=== PATIENT | male | born 1960 | race Two or more races ===

== ENCOUNTER 2018-01-02 18:28 | Inpatient (IN) | payer MEDICAID ==
[~2018-01-02] VITALS: Ht 175.3 cm; Wt 81.7 kg
[~2018-01-02 18:28] MED LIST: CALC667C5 PO; CINA30TA2 PO; GLIP-115; HYDR25TA35; NIFE-16; OMEP20CA74 PO; PRO10T PO; SEVE800T8
[2018-01-02] MEDS ORDERED: SODIUM CHLORIDE 0.9% 250 ML IV ONE (19:30)
[2018-01-02] MEDS ORDERED: PANTOPRAZOLE 40 MG/10 ML VIAL IV ONE (19:30)
[2018-01-02] MEDS ORDERED: ONDANSETRON HCL 4 MG/2 ML VIAL IV ONE (19:30)
[2018-01-02 20:29] LABS: Basophils # (auto) 0 uL; Basophils % (auto) 0.5 % (0.0-2.0); Eosinophils # (auto) 0.2 uL; Eosinophils % (auto) 3.4 % (0.0-7.0); Hematocrit 32.6 % (41.0-53.0); Hemoglobin 10.8 g/dL (13.5-17.5); Lymphocytes # (auto) 0.8 uL; Lymphocytes % (auto) 13.6 % (10.0-50.0); Mean Corpuscular Hemoglobin 31.2 pg (28.0-32.0); Mean Corpuscular Hgb Conc. 33.2 g/dL (32.0-36.0); Mean Corpuscular Volume 93.8 fL (80.0-100.0); Monocytes # (auto) 0.4 uL; Monocytes % (auto) 5.9 % (0.0-12.0); Neutrophils # (auto) 4.8 uL; Neutrophils % (auto) 76.6 % (37.0-80.0); Red Blood Cells 3.47 10^6/uL (4.5-5.90); Red Cell Distribution Width 14.2 % (11.8-14.3); White Blood Cell 6.2 10^3/uL (4.4-10.8)
[2018-01-02 20:32] LABS: Platelet Count (auto) 124 10^3/uL (140-450)
[2018-01-02 20:41] LABS: INR 0.93 (0.9-1.15); Partial Thromboplastin Time 25.2 sec (22.64-33.71); Prothrombin Time 10.1 sec (9.37-12.3)
[2018-01-02 20:53] LABS: Albumin 3.6 g/dL (3.4-5.0); BUN/Creatinine Ratio 4.8; Bilirubin, Total 0.5 mg/dL (0.2-1.0); Magnesium 2.8 mg/dL (1.6-2.6); Potassium 3.7 mmol/L (3.5-5.1); Total Protein 8.3 g/dL (6.4-8.2)
[2018-01-03] VITALS (7 sets, daily range): BP systolic 107–154; BP diastolic 43–108
[2018-01-03] MEDS ORDERED: PANTOPRAZOLE 80 MG in SODIUM CHL 0.9% 60 ML IV ONE (01:30)
[2018-01-03] MEDS ORDERED: ONDANSETRON HCL 4 MG/2 ML VIAL IV PRN (02:00)
[2018-01-03] MEDS ORDERED: ACETAMINOPHEN 500 MG TAB PO PRN (02:00)
[2018-01-03] MEDS ORDERED: HYDROcodone-ACET 5/325MG TAB PO PRN (02:00)
[2018-01-03] MEDS ORDERED: IBUPROFEN 600 MG TAB PO PRN (02:15)
[2018-01-03] MEDS ORDERED: MORPHINE SULFATE 4 MG/ML SYR/VIAL IV PRN (02:15)
[2018-01-03] MEDS ORDERED: BENZOCAINE (DENTAL) 20 % SPRAY 60ML MT ONE (02:44)
[2018-01-03] MEDS ORDERED: DEXTROSE (50%) 50ML SYRG IV PRN (03:00)
[2018-01-03] MEDS: ONDANSETRON HCL 4 MG/2 ML VIAL IV PRN ×2 (05:32→22:55)
[2018-01-03] MEDS: InsuLIN REG 1unit/0.01ml Soln (100units/ml) SC SCH ×4 (06:50→21:38)
[2018-01-03] MEDS: ACCU-CHEK COMFORT CURVE STRIP VI SCH ×4 (06:51→21:10)
[2018-01-03] MEDS ORDERED: PANTOPRAZOLE 40 MG/10 ML VIAL IV SCH ×2 (10:00→22:00)
[2018-01-03] MEDS: hydrALAZINE HCL 25 MG TAB PO SCH ×2 (10:34→21:12)
[2018-01-03] MEDS: SODIUM CHLORIDE 0.9% 1,000 ML IV SCH (14:09)
[2018-01-03] MEDS ORDERED: NITROGLYCERIN 0.4 MG SL TAB SL PRN (14:45)
[2018-01-03] MEDS ORDERED: MORPHINE SULF INJ 2 MG/ML SYRINGE 1ML IV PRN (14:45)
[2018-01-03] MEDS: SODIUM CHLOR 0.9% PF (SALINE LOCK) 10ML VIAL IV SCH (21:11)
[2018-01-04] VITALS (8 sets, daily range): BP systolic 107–150; BP diastolic 56–77
[2018-01-04] MEDS: ACCU-CHEK COMFORT CURVE STRIP VI SCH ×4 (06:28→21:54)
[2018-01-04] MEDS: SODIUM CHLORIDE 0.9% 1,000 ML IV SCH (06:28)
[2018-01-04] MEDS: SODIUM CHLOR 0.9% PF (SALINE LOCK) 10ML VIAL IV SCH ×3 (06:28→21:54)
[2018-01-04] MEDS: InsuLIN REG 1unit/0.01ml Soln (100units/ml) SC SCH ×4 (06:34→22:04)
[2018-01-04 06:59] LABS: Basophils # (auto) 0 uL; Basophils % (auto) 0.4 % (0.0-2.0); Eosinophils # (auto) 0.2 uL; Eosinophils % (auto) 3.8 % (0.0-7.0); Hematocrit 31.1 % (41.0-53.0); Hemoglobin 10.3 g/dL (13.5-17.5); Lymphocytes # (auto) 0.9 uL; Lymphocytes % (auto) 17.4 % (10.0-50.0); Mean Corpuscular Hemoglobin 31.5 pg (28.0-32.0); Mean Corpuscular Hgb Conc. 33.3 g/dL (32.0-36.0); Mean Corpuscular Volume 94.7 fL (80.0-100.0); Monocytes # (auto) 0.4 uL; Monocytes % (auto) 8.1 % (0.0-12.0); Neutrophils # (auto) 3.8 uL; Neutrophils % (auto) 70.3 % (37.0-80.0); Nucleated Red Blood Cells % 0.1 %; Platelet Count (auto) 118 10^3/uL (140-450); Red Blood Cells 3.28 10^6/uL (4.5-5.90); Red Cell Distribution Width 14.2 % (11.8-14.3); White Blood Cell 5.4 10^3/uL (4.4-10.8)
[2018-01-04 08:03] LABS: Albumin 3.6 g/dL (3.4-5.0); BUN/Creatinine Ratio 4.9; Bilirubin, Total 0.6 mg/dL (0.2-1.0); Calcium 8.5 mg/dL (8.5-10.1); Potassium 4.5 mmol/L (3.5-5.1); Total Protein 8.2 g/dL (6.4-8.2)
[2018-01-04] MEDS: hydrALAZINE HCL 25 MG TAB PO SCH ×2 (10:00→21:54)
[2018-01-04] MEDS ORDERED: LIDOCAINE VISCOUS 2% 15ML UD ONE (10:36)
[2018-01-04] MEDS ORDERED: MIDAZOLAM HCL 5 MG/ML-1ML VIAL ONE (10:36)
[2018-01-04] MEDS ORDERED: fentaNYL CITRATE 100 MCG/2 ML VL ONE (10:36)
[2018-01-04] MEDS ORDERED: diphenhdrAMINE HCL 50 MG/1 ML VL ONE (10:36)
[2018-01-04] MEDS ORDERED: SODIUM CHL 0.9% 1000 ML BAG XX ONE (15:30)
[2018-01-04] MEDS: PANTOPRAZOLE 40 MG TAB PO SCH (21:54)
[2018-01-05 05:39] VITALS: BP 100/35
[2018-01-05] MEDS: ACCU-CHEK COMFORT CURVE STRIP VI SCH ×2 (05:45→12:16)
[2018-01-05] MEDS: SODIUM CHLOR 0.9% PF (SALINE LOCK) 10ML VIAL IV SCH ×2 (05:45→14:28)
[2018-01-05] MEDS: InsuLIN REG 1unit/0.01ml Soln (100units/ml) SC SCH ×2 (06:07→12:16)
[2018-01-05 07:30] LABS: Basophils # (auto) 0 uL; Basophils % (auto) 0.7 % (0.0-2.0); Eosinophils # (auto) 0.3 uL; Hematocrit 31.6 % (41.0-53.0); Hemoglobin 10.6 g/dL (13.5-17.5); Lymphocytes # (auto) 1.1 uL; Lymphocytes % (auto) 24.1 % (10.0-50.0); Mean Corpuscular Hemoglobin 31.6 pg (28.0-32.0); Mean Corpuscular Hgb Conc. 33.6 g/dL (32.0-36.0); Mean Corpuscular Volume 94.1 fL (80.0-100.0); Monocytes # (auto) 0.5 uL; Monocytes % (auto) 10.4 % (0.0-12.0); Neutrophils # (auto) 2.7 uL; Neutrophils % (auto) 58.8 % (37.0-80.0); Nucleated Red Blood Cells % 0.1 %; Platelet Count (auto) 120 10^3/uL (140-450); Red Blood Cells 3.35 10^6/uL (4.5-5.90); Red Cell Distribution Width 14.3 % (11.8-14.3); White Blood Cell 4.6 10^3/uL (4.4-10.8)
[2018-01-05 09:00] VITALS: BP 161/84
[2018-01-05] MEDS: hydrALAZINE HCL 25 MG TAB PO SCH (09:37)
[2018-01-05] MEDS: PANTOPRAZOLE 40 MG TAB PO SCH (09:37)
[2018-01-05 12:58] VITALS: BP 135/69
[2018-01-05] MEDS ORDERED: EPOETIN ALFA 2,000 UNIT/1 ML VIAL IV ONE (13:00)
[2018-01-05] MEDS ORDERED: SODIUM CHL 0.9% 1000 ML BAG XX ONE (13:00)
[2018-01-05] MEDS ORDERED: EPOETIN ALFA 3,000 UNIT/1 ML VIAL IV ONE (13:00)
[2018-01-05] MEDS ORDERED: PANT40T PO (13:24)
[2018-01-06] MEDS ORDERED: SODIUM CHL 0.9% 1000 ML BAG XX ONE (09:00)
[2018-01-06] MEDS ORDERED: EPOETIN ALFA 2,000 UNIT/1 ML VIAL IV ONE (09:00)
[2018-01-06] MEDS ORDERED: EPOETIN ALFA 3,000 UNIT/1 ML VIAL IV ONE (09:00)
== END 2018-01-05 15:26 | disposition home or self-care (01) | DRG 241 ==
LOC: ER 18:28 → EDBD 18:28 → OVERFLOW 18:29 → WEST WING 01-03 03:00 → TELE-WESTW 01-03 14:34
PROVIDERS: ADMIT Nurse Practitioner Family; ATTEND Internal Medicine
PROC: 5A1D70Z Performance of Urinary Filtration, Intermittent, Less than 6 Hours Per Day (ICD-10-PCS; 2018-01-04)
PROC: 0DB68ZX Excision of Stomach, Via Natural or Artificial Opening Endoscopic, Diagnostic (ICD-10-PCS; principal; 2018-01-04 14:05)
DX: K29.01 Acute gastritis with bleeding (principal); N18.6 End stage renal disease; E11.21 Type 2 diabetes mellitus with diabetic nephropathy; I12.0 Hypertensive chronic kidney disease with stage 5 chronic kidney disease or end stage renal disease; E11.319 Type 2 diabetes mellitus with unspecified diabetic retinopathy without macular edema; S36.39XA Other injury of stomach, initial encounter; E11.22 Type 2 diabetes mellitus with diabetic chronic kidney disease; E87.1 Hypo-osmolality and hyponatremia; K80.20 Calculus of gallbladder without cholecystitis without obstruction; Z99.2 Dependence on renal dialysis; H54.8 Legal blindness, as defined in USA; D63.8 Anemia in other chronic diseases classified elsewhere; Z79.84 Long term (current) use of oral hypoglycemic drugs; Z79.899 Other long term (current) drug therapy; Z89.512 Acquired absence of left leg below knee; T85.9XXA Unspecified complication of internal prosthetic device, implant and graft, initial encounter; J98.11 Atelectasis
CPT/HCPCS: 36415; 43239; 71045; 74018; 74176; 76705; 80053; 82140; 82150; 82962; 83036; 83605; 83690; 83735; 84484; 85025; 85610; 85730; 86850; 86900; 86901; 90935; 93005; 93306; 96361; 96374; 96375; 99291; C9113; J1642; J1815; J2250; J2405

== ENCOUNTER 2018-06-06 19:26 | Inpatient (IN) | payer MEDICAID ==
[~2018-06-06] VITALS: Ht 175.3 cm; Wt 79.1 kg
[~2018-06-06 19:26] MED LIST changes: +HYDR-4296; -HYDR25TA35; -OMEP20CA74 PO; +PANT40T PO
[2018-06-06 20:33] LABS: Basophils # (auto) 0.1 uL; Basophils % (auto) 0.9 % (0.0-2.0); Eosinophils # (auto) 0.1 uL; Eosinophils % (auto) 0.9 % (0.0-7.0); Hematocrit 37.5 % (41.0-53.0); Hemoglobin 12.4 g/dL (13.5-17.5); Lymphocytes # (auto) 0.8 uL; Lymphocytes % (auto) 8.9 % (10.0-50.0); Mean Corpuscular Hgb Conc. 33.2 g/dL (32.0-36.0); Mean Corpuscular Volume 90.2 fL (80.0-100.0); Monocytes # (auto) 0.5 uL; Monocytes % (auto) 5.8 % (0.0-12.0); Neutrophils # (auto) 7.1 uL; Neutrophils % (auto) 83.5 % (37.0-80.0); Platelet Count (auto) 160 10^3/uL (140-450); Red Blood Cells 4.16 10^6/uL (4.5-5.90); Red Cell Distribution Width 15.1 % (11.8-14.3); White Blood Cell 8.5 10^3/uL (4.4-10.8)
[2018-06-06] MEDS ORDERED: PANTOPRAZOLE 40 MG/10 ML VIAL IV ONE (20:45)
[2018-06-06] MEDS ORDERED: PROMETHAZINE HCL 25 MG/ML 1ML IV ONE (20:45)
[2018-06-06] MEDS ORDERED: SODIUM CHLORIDE 0.9% 1,000 ML IVB ONE (21:01)
[2018-06-06 21:06] LABS: Albumin 3.9 g/dL (3.4-5.0); BUN/Creatinine Ratio 6.5; Bilirubin, Total 0.5 mg/dL (0.2-1.0); Calcium 9.1 mg/dL (8.5-10.1); Total Protein 9.7 g/dL (6.4-8.2)
[2018-06-06] MEDS ORDERED: InsuLIN REG 1unit/0.01ml Soln (100units/ml) SC ONE (21:15)
[2018-06-06 21:34] LABS: Magnesium 2.8 mg/dL (1.6-2.6)
[2018-06-06 21:50] LABS: INR 0.95 (0.9-1.15); Partial Thromboplastin Time 24.8 sec (23.78-33.04); Prothrombin Time 10.2 sec (9.27-12.13)
[2018-06-06] MEDS ORDERED: NITROGLYCERIN 0.4 MG SL TAB SL PRN (23:00)
[2018-06-06] MEDS ORDERED: MORPHINE SULF INJ 2 MG/ML SYRINGE 1ML IV PRN (23:00)
[2018-06-06] MEDS ORDERED: ONDANSETRON HCL 4 MG/2 ML VIAL IV PRN (23:00)
[2018-06-06] MEDS ORDERED: ACETAMINOPHEN 325 MG TAB PO PRN (23:00)
[2018-06-06] MEDS ORDERED: DEXTROSE (50%) 50ML SYRG IV PRN (23:00)
[2018-06-07] VITALS (7 sets, daily range): BP systolic 110–150; BP diastolic 60–92
[2018-06-07 00:48] LABS: Hematocrit 33.6 % (41.0-53.0); Hemoglobin 10.8 g/dL (13.5-17.5)
[2018-06-07] MEDS: InsuLIN REG 1unit/0.01ml Soln (100units/ml) SC SCH ×6 (01:15→21:40)
[2018-06-07] MEDS: ACCU-CHEK COMFORT CURVE STRIP VI SCH ×7 (01:15→23:57)
[2018-06-07] MEDS: CALCIUM ACETATE 667 MG CAP PO SCH ×4 (06:28→21:39)
[2018-06-07 07:28] LABS: Basophils # (auto) 0 uL; Basophils % (auto) 0.4 % (0.0-2.0); Eosinophils # (auto) 0.1 uL; Eosinophils % (auto) 1.3 % (0.0-7.0); Hematocrit 31.9 % (41.0-53.0); Hemoglobin 10.8 g/dL (13.5-17.5); Lymphocytes % (auto) 11.6 % (10.0-50.0); Mean Corpuscular Hemoglobin 30.3 pg (28.0-32.0); Mean Corpuscular Hgb Conc. 33.8 g/dL (32.0-36.0); Mean Corpuscular Volume 89.4 fL (80.0-100.0); Monocytes # (auto) 0.7 uL; Monocytes % (auto) 7.4 % (0.0-12.0); Neutrophils # (auto) 7.2 uL; Neutrophils % (auto) 79.3 % (37.0-80.0); Platelet Count (auto) 155 10^3/uL (140-450); Red Blood Cells 3.57 10^6/uL (4.5-5.90); Red Cell Distribution Width 14.9 % (11.8-14.3)
[2018-06-07 07:33] LABS: Albumin 3.4 g/dL (3.4-5.0); Calcium 8.7 mg/dL (8.5-10.1); Potassium 4.5 mmol/L (3.5-5.1)
[2018-06-07 07:43] LABS: BUN/Creatinine Ratio 6.6; Bilirubin, Total 0.4 mg/dL (0.2-1.0); Total Protein 8.6 g/dL (6.4-8.2)
[2018-06-07] MEDS: SEVELAMER 800 MG TAB PO SCH ×3 (10:06→17:53)
[2018-06-07] MEDS: PANTOPRAZOLE 40 MG/10 ML VIAL IV SCH (10:07)
[2018-06-07] MEDS: NIFEdipine ER 30 MG TAB PO SCH (10:09)
[2018-06-07] MEDS ORDERED: EPOETIN ALFA 2,000 UNIT/1 ML VIAL IV ONE (12:00)
[2018-06-08 05:00] VITALS: BP 133/64
[2018-06-08] MEDS: InsuLIN REG 1unit/0.01ml Soln (100units/ml) SC SCH ×4 (06:26→22:22)
[2018-06-08] MEDS: CALCIUM ACETATE 667 MG CAP PO SCH ×4 (06:33→22:09)
[2018-06-08] MEDS: SEVELAMER 800 MG TAB PO SCH ×3 (07:52→17:40)
[2018-06-08 08:20] VITALS: BP 116/79
[2018-06-08] MEDS: NIFEdipine ER 30 MG TAB PO SCH (10:30)
[2018-06-08] MEDS: PANTOPRAZOLE 40 MG/10 ML VIAL IV SCH ×2 (10:30→22:09)
[2018-06-08 12:00] VITALS: BP 118/57
[2018-06-08 13:57] LABS: Basophils # (auto) 0 uL; Basophils % (auto) 0.8 % (0.0-2.0); Eosinophils # (auto) 0.2 uL; Eosinophils % (auto) 4.4 % (0.0-7.0); Hematocrit 29.7 % (41.0-53.0); Hemoglobin 9.7 g/dL (13.5-17.5); Lymphocytes # (auto) 0.9 uL; Lymphocytes % (auto) 16.9 % (10.0-50.0); Mean Corpuscular Hemoglobin 29.6 pg (28.0-32.0); Mean Corpuscular Hgb Conc. 32.7 g/dL (32.0-36.0); Mean Corpuscular Volume 90.6 fL (80.0-100.0); Monocytes # (auto) 0.4 uL; Monocytes % (auto) 7.1 % (0.0-12.0); Neutrophils # (auto) 3.8 uL; Neutrophils % (auto) 70.8 % (37.0-80.0); Platelet Count (auto) 124 10^3/uL (140-450); Red Blood Cells 3.28 10^6/uL (4.5-5.90); Red Cell Distribution Width 15.2 % (11.8-14.3); White Blood Cell 5.4 10^3/uL (4.4-10.8)
[2018-06-08 14:17] LABS: BUN/Creatinine Ratio 4.6; Calcium 8.3 mg/dL (8.5-10.1)
[2018-06-08 14:21] LABS: Magnesium 2.5 mg/dL (1.6-2.6); Phosphorus 4.1 mg/dL (2.5-4.90)
[2018-06-08 16:48] VITALS: BP 115/79
[2018-06-08] MEDS: ACCU-CHEK COMFORT CURVE STRIP VI SCH ×2 (17:40→22:16)
[2018-06-08 21:51] VITALS: BP 114/36
[2018-06-09] VITALS (7 sets, daily range): BP systolic 97–132; BP diastolic 45–60
[2018-06-09 06:22] LABS: Basophils # (auto) 0 uL; Basophils % (auto) 0.2 % (0.0-2.0); Eosinophils # (auto) 0.2 uL; Eosinophils % (auto) 3.9 % (0.0-7.0); Hematocrit 27.7 % (41.0-53.0); Hemoglobin 9.4 g/dL (13.5-17.5); Lymphocytes # (auto) 0.9 uL; Lymphocytes % (auto) 14.5 % (10.0-50.0); Mean Corpuscular Hemoglobin 30.4 pg (28.0-32.0); Mean Corpuscular Hgb Conc. 33.8 g/dL (32.0-36.0); Monocytes # (auto) 0.4 uL; Monocytes % (auto) 6.8 % (0.0-12.0); Neutrophils # (auto) 4.7 uL; Neutrophils % (auto) 74.6 % (37.0-80.0); Platelet Count (auto) 140 10^3/uL (140-450); Red Blood Cells 3.08 10^6/uL (4.5-5.90); White Blood Cell 6.3 10^3/uL (4.4-10.8)
[2018-06-09] MEDS: ACCU-CHEK COMFORT CURVE STRIP VI SCH ×4 (06:33→21:29)
[2018-06-09] MEDS: InsuLIN REG 1unit/0.01ml Soln (100units/ml) SC SCH ×4 (06:34→21:30)
[2018-06-09] MEDS: CALCIUM ACETATE 667 MG CAP PO SCH ×4 (06:35→21:29)
[2018-06-09 06:59] LABS: BUN/Creatinine Ratio 4.6; Calcium 8.4 mg/dL (8.5-10.1)
[2018-06-09] MEDS ORDERED: LIDOCAINE VISCOUS 2% 15ML UD ONE (08:22)
[2018-06-09] MEDS ORDERED: SODIUM CHLORIDE LOCK 10 ML ONE (08:22)
[2018-06-09] MEDS ORDERED: fentaNYL CITRATE 100 MCG/2 ML VL ONE (08:22)
[2018-06-09] MEDS ORDERED: MIDAZOLAM HCL 5 MG/ML-1ML VIAL ONE (08:23)
[2018-06-09] MEDS ORDERED: diphenhdrAMINE HCL 50 MG/1 ML VL ONE (08:23)
[2018-06-09] MEDS ORDERED: SODIUM CHL 0.9% 1000 ML BAG XX ONE (09:00)
[2018-06-09] MEDS: SEVELAMER 800 MG TAB PO SCH ×3 (09:00→17:57)
[2018-06-09] MEDS ORDERED: EPOETIN ALFA 2,000 UNIT/1 ML VIAL IV ONE (09:00)
[2018-06-09] MEDS: NIFEdipine ER 30 MG TAB PO SCH (09:09)
[2018-06-09] MEDS: PANTOPRAZOLE 40 MG/10 ML VIAL IV SCH (09:09)
[2018-06-09] MEDS ORDERED: EPOETIN ALFA 3,000 UNIT/1 ML VIAL IV ONE (10:30)
[2018-06-09] MEDS: PANTOPRAZOLE 40 MG TAB PO SCH (21:29)
[2018-06-10 05:07] VITALS: BP 107/56
[2018-06-10] MEDS: ACCU-CHEK COMFORT CURVE STRIP VI SCH ×2 (05:47→11:18)
[2018-06-10] MEDS: InsuLIN REG 1unit/0.01ml Soln (100units/ml) SC SCH ×2 (05:47→11:42)
[2018-06-10] MEDS: CALCIUM ACETATE 667 MG CAP PO SCH ×2 (05:53→11:42)
[2018-06-10 06:55] LABS: Basophils # (auto) 0 uL; Basophils % (auto) 0.5 % (0.0-2.0); Eosinophils # (auto) 0.2 uL; Eosinophils % (auto) 5.6 % (0.0-7.0); Hemoglobin 9.7 g/dL (13.5-17.5); Lymphocytes # (auto) 0.9 uL; Lymphocytes % (auto) 24.3 % (10.0-50.0); Mean Corpuscular Hemoglobin 30.5 pg (28.0-32.0); Mean Corpuscular Hgb Conc. 33.5 g/dL (32.0-36.0); Monocytes # (auto) 0.3 uL; Neutrophils # (auto) 2.3 uL; Neutrophils % (auto) 60.6 % (37.0-80.0); Nucleated Red Blood Cells % 0.1 %; Platelet Count (auto) 131 10^3/uL (140-450); Red Blood Cells 3.19 10^6/uL (4.5-5.90); Red Cell Distribution Width 14.9 % (11.8-14.3); White Blood Cell 3.8 10^3/uL (4.4-10.8)
[2018-06-10 07:21] LABS: Calcium 8.5 mg/dL (8.5-10.1); Potassium 4.2 mmol/L (3.5-5.1)
[2018-06-10] MEDS: SEVELAMER 800 MG TAB PO SCH ×2 (07:56→11:41)
[2018-06-10 09:18] VITALS: BP 129/41
[2018-06-10 09:29] VITALS: BP 129/41
[2018-06-10] MEDS: PANTOPRAZOLE 40 MG TAB PO SCH (09:56)
[2018-06-10] MEDS: NIFEdipine ER 30 MG TAB PO SCH (09:56)
== END 2018-06-10 12:22 | disposition home or self-care (01) | DRG 241 ==
LOC: ER 19:26 → EDBD 19:26 → TELE 19:27 → TELE-EAST 23:52
PROVIDERS: ADMIT Nurse Practitioner; ATTEND Internal Medicine
PROC: 5A1D70Z Performance of Urinary Filtration, Intermittent, Less than 6 Hours Per Day (ICD-10-PCS; 2018-06-07)
PROC: 0DB38ZX Excision of Lower Esophagus, Via Natural or Artificial Opening Endoscopic, Diagnostic (ICD-10-PCS; 2018-06-09)
PROC: 5A1D70Z Performance of Urinary Filtration, Intermittent, Less than 6 Hours Per Day (ICD-10-PCS; 2018-06-09)
PROC: 0DB68ZX Excision of Stomach, Via Natural or Artificial Opening Endoscopic, Diagnostic (ICD-10-PCS; principal; 2018-06-09 14:18)
DX: K29.71 Gastritis, unspecified, with bleeding (principal); E11.22 Type 2 diabetes mellitus with diabetic chronic kidney disease; E11.51 Type 2 diabetes mellitus with diabetic peripheral angiopathy without gangrene; I12.0 Hypertensive chronic kidney disease with stage 5 chronic kidney disease or end stage renal disease; N18.6 End stage renal disease; K80.20 Calculus of gallbladder without cholecystitis without obstruction; D63.1 Anemia in chronic kidney disease; F17.200 Nicotine dependence, unspecified, uncomplicated; H54.7 Unspecified visual loss; H91.90 Unspecified hearing loss, unspecified ear; K20.9 Esophagitis, unspecified; N25.81 Secondary hyperparathyroidism of renal origin; M48.061 Spinal stenosis, lumbar region without neurogenic claudication; E83.59 Other disorders of calcium metabolism; N29 Other disorders of kidney and ureter in diseases classified elsewhere; Z99.2 Dependence on renal dialysis; Z89.612 Acquired absence of left leg above knee; Z89.512 Acquired absence of left leg below knee
CPT/HCPCS: 36415; 43239; 71045; 74176; 80048; 80053; 82150; 82962; 83036; 83690; 83735; 84100; 84484; 85014; 85018; 85025; 85610; 85730; 86850; 86900; 86901; 87081; 90935; 93005; 94761; 96361; 96372; 96374; 96375; A6257; C9113; J1815; J2250; Q4081

== ENCOUNTER 2018-08-16 09:26 | Observation (INO) | payer MEDICAID ==
[~2018-08-16] VITALS: Ht 167.6 cm; Wt 77.1 kg
[2018-08-16 10:07] LABS: Basophils # (auto) 0 uL; Eosinophils # (auto) 0.2 uL; Eosinophils % (auto) 3.7 % (0.0-7.0); Hematocrit 30.1 % (41.0-53.0); Hemoglobin 9.8 g/dL (13.5-17.5); Lymphocytes # (auto) 0.9 uL; Lymphocytes % (auto) 18.3 % (10.0-50.0); Mean Corpuscular Hemoglobin 30.7 pg (28.0-32.0); Mean Corpuscular Hgb Conc. 32.4 g/dL (32.0-36.0); Mean Corpuscular Volume 94.6 fL (80.0-100.0); Monocytes # (auto) 0.4 uL; Monocytes % (auto) 7.9 % (0.0-12.0); Neutrophils # (auto) 3.6 uL; Neutrophils % (auto) 69.1 % (37.0-80.0); Platelet Count (auto) 180 10^3/uL (140-450); Red Blood Cells 3.18 10^6/uL (4.5-5.90); Red Cell Distribution Width 17.5 % (11.8-14.3); White Blood Cell 5.2 10^3/uL (4.4-10.8)
[2018-08-16 10:27] LABS: INR 0.99 (0.9-1.15); Partial Thromboplastin Time 23.8 sec (23.78-33.04); Prothrombin Time 10.6 sec (9.27-12.13)
[2018-08-16 10:28] LABS: Calcium 8.1 mg/dL (8.5-10.1); Potassium 4.7 mmol/L (3.5-5.1)
[2018-08-16 10:37] LABS: Bilirubin, Total 0.4 mg/dL (0.2-1.0); Total Protein 7.4 g/dL (6.4-8.2)
[2018-08-16] MEDS ORDERED: InsuLIN REG 1unit/0.01ml Soln (100units/ml) IV ONE (13:15)
[2018-08-16] MEDS ORDERED: NITROGLYCERIN 0.4 MG SL TAB SL PRN (13:30)
[2018-08-16] MEDS ORDERED: ONDANSETRON HCL 4 MG/2 ML VIAL IV PRN (13:30)
[2018-08-16] MEDS ORDERED: DEXTROSE (50%) 50ML SYRG IV PRN (13:30)
[2018-08-16] MEDS ORDERED: LORazepam 0.5 MG TAB PO PRN (13:30)
[2018-08-16] MEDS ORDERED: LACTULOSE 20Gm/30ML SOLN PO PRN (13:30)
[2018-08-16] MEDS ORDERED: TEMAZEPAM 15 MG CAP PO PRN (13:30)
[2018-08-16] MEDS ORDERED: PANTOPRAZOLE 40 MG TAB PO ONE (13:30)
[2018-08-16] MEDS ORDERED: MORPHINE SULFATE 4 MG/ML SYR/VIAL IV PRN (13:30)
[2018-08-16] MEDS ORDERED: ACETAMINOPHEN 500 MG TAB PO PRN (13:30)
[2018-08-16] MEDS ORDERED: traMADol HCL 50 MG TAB PO PRN (13:30)
[2018-08-16 14:50] LABS: INR 0.96 (0.9-1.15); Prothrombin Time 10.3 sec (9.27-12.13)
[2018-08-16] MEDS ORDERED: ONDANSETRON HCL 4 MG/2 ML VIAL IV ONE (15:00)
[2018-08-16] MEDS ORDERED: InsuLIN REG 1unit/0.01ml Soln (100units/ml) SC SCH (16:00)
[2018-08-16] MEDS ORDERED: ACCU-CHEK COMFORT CURVE STRIP VI SCH (16:00)
[2018-08-16] MEDS ORDERED: MIDODRINE HCL 10 MG TAB PO ONE (16:45)
[2018-08-16 17:08] VITALS: BP 106/67
[2018-08-17] MEDS ORDERED: PANTOPRAZOLE 40 MG TAB PO SCH (10:00)
== END 2018-08-16 17:34 | disposition home or self-care (01) | DRG 206 ==
LOC: EDBD 09:26 → ER 09:26 → OVERFLOW 09:27 → TELE 13:18 → UNDOADMIN 13:18 → ER 17:34
PROVIDERS: ADMIT Family Medicine; ATTEND Family Medicine
DX: T82.838A Hemorrhage due to vascular prosthetic devices, implants and grafts, initial encounter (principal); E10.21 Type 1 diabetes mellitus with diabetic nephropathy; I12.0 Hypertensive chronic kidney disease with stage 5 chronic kidney disease or end stage renal disease; E10.319 Type 1 diabetes mellitus with unspecified diabetic retinopathy without macular edema; E10.65 Type 1 diabetes mellitus with hyperglycemia; N18.6 End stage renal disease; K21.9 Gastro-esophageal reflux disease without esophagitis; E78.5 Hyperlipidemia, unspecified; H54.7 Unspecified visual loss; D63.8 Anemia in other chronic diseases classified elsewhere; Y84.1 Kidney dialysis as the cause of abnormal reaction of the patient, or of later complication, without mention of misadventure at the time of the procedure; Z82.49 Family history of ischemic heart disease and other diseases of the circulatory system; Z83.3 Family history of diabetes mellitus; Z89.512 Acquired absence of left leg below knee
CPT/HCPCS: 36415; 71045; 80053; 82962; 83036; 83735; 85025; 85610; 85652; 85730; 93005; 94761; 96374; 96375; 99285; G0378; J1815; J2405; J7040; J7050

== ENCOUNTER 2018-12-21 10:03 | Inpatient (IN) | payer MEDICAID | END 2018-12-22 21:23 | disposition home or self-care (01) | LOC: ER 10:03 → TELE 15:32 → TELE-WESTW 17:55 | DX: I21.4 Non-ST elevation (NSTEMI) myocardial infarction (principal); E11.22 Type 2 diabetes mellitus with diabetic chronic kidney disease; E11.65 Type 2 diabetes mellitus with hyperglycemia; E87.1 Hypo-osmolality and hyponatremia; Z99.2 Dependence on renal dialysis; N18.6 End stage renal disease ==

== ENCOUNTER 2020-08-03 23:18 | Inpatient (IN) | payer MEDICAID ==
[~2020-08-03] VITALS: Ht 175.3 cm; Wt 84.5 kg
[~2020-08-03 23:18] MED LIST changes: +CLIN300C8 PO; -GLIP-115; +GLIP5TAB12; -PRO10T PO; +PROC10TA2 PO
[2020-08-04] MEDS ORDERED: PANTOPRAZOLE 40mg/50ML NS AE 50 ML IV ONE (00:30)
[2020-08-04] MEDS ORDERED: PANTOPRAZOLE 40 MG/10 ML VIAL INJ IV ONE (00:30)
[2020-08-04] MEDS ORDERED: SODIUM CHLORIDE 0.9% 1,000 ML IV ONE ×2 (01:15→02:15)
[2020-08-04 01:30] LABS: Basophils # (auto) 0 10 ^3/uL (0-0.2); Basophils % (auto) 0.3 % (0.0-2.0); Eosinophils # (auto) 0.1 10 ^3/uL (0-0.8); Eosinophils % (auto) 0.7 % (0.0-7.0); Hematocrit 29.3 % (41.0-53.0); Hemoglobin 9.5 g/dL (13.5-17.5); Lymphocytes # (auto) 0.5 10 ^3/uL (0.4-5.4); Lymphocytes % (auto) 5.1 % (10.0-50.0); Mean Corpuscular Hemoglobin 32.4 pg (28.0-32.0); Mean Corpuscular Hgb Conc. 32.5 g/dL (32.0-36.0); Mean Corpuscular Volume 99.9 fL (80.0-100.0); Monocytes # (auto) 0.6 10 ^3/uL (0-1.3); Monocytes % (auto) 6.1 % (0.0-12.0); Neutrophils # (auto) 8.9 10 ^3/uL (1.6-8.6); Neutrophils % (auto) 87.8 % (37.0-80.0); Platelet Count (auto) 134 10^3/uL (140-450); Red Blood Cells 2.93 10^6/uL (4.5-5.90); Red Cell Distribution Width 15.5 % (11.8-14.3); White Blood Cell 10.1 10^3/uL (4.4-10.8)
[2020-08-04 01:41] LABS: Albumin 3.8 g/dL (3.4-5.0); Calcium 8.9 mg/dL (8.5-10.1); INR 1.08 (0.9-1.15); Magnesium 2.6 mg/dL (1.6-2.6); Partial Thromboplastin Time 25.7 sec (23.0-31.2); Potassium 4.1 mmol/L (3.5-5.1)
[2020-08-04 01:44] LABS: Lactic Acid w/Reflex 2.9 mmol/L (0.4-2.0)
[2020-08-04 01:45] LABS: BUN/Creatinine Ratio 5.1; Bilirubin, Total 0.7 mg/dL (0.2-1.0); Total Protein 7.9 g/dL (6.4-8.2)
[2020-08-04] MEDS ORDERED: InsuLIN REG 1unit/0.01ml Soln (100units/ml) IV ONE ×2 (02:00→02:15)
[2020-08-04] MEDS ORDERED: ONDANSETRON HCL 4 MG/2 ML VIAL IV ONE (03:00)
[2020-08-04] MEDS ORDERED: MORPHINE SULFATE 4 MG/ML SYR/VIAL IV ONE (03:00)
[2020-08-04] MEDS ORDERED: NITROGLYCERIN 0.4 MG SL TAB SL PRN (05:30)
[2020-08-04] MEDS ORDERED: DEXTROSE (50%) 50ML SYRG IV PRN (05:30)
[2020-08-04] MEDS ORDERED: MORPHINE SULF INJ 2 MG/ML SYRINGE 1ML IV PRN ×2 (05:30)
[2020-08-04] MEDS ORDERED: ONDANSETRON HCL 4 MG/2 ML VIAL IV PRN (05:30)
[2020-08-04] MEDS: PANTOPRAZOLE 40mg/50ML NS AE 50 ML IV SCH ×3 (06:24→13:17)
[2020-08-04] MEDS: InsuLIN REG 1unit/0.01ml Soln (100units/ml) SC SCH ×3 (06:25→18:19)
[2020-08-04] MEDS: ACCU-CHEK COMFORT CURVE STRIP VI SCH ×3 (06:26→17:48)
[2020-08-04 06:35] LABS: Basophils # (auto) 0.1 10 ^3/uL (0-0.2); Basophils % (auto) 0.9 % (0.0-2.0); Eosinophils # (auto) 0.1 10 ^3/uL (0-0.8); Eosinophils % (auto) 0.8 % (0.0-7.0); Hematocrit 28.2 % (41.0-53.0); Hemoglobin 9.4 g/dL (13.5-17.5); Lymphocytes # (auto) 0.8 10 ^3/uL (0.4-5.4); Lymphocytes % (auto) 7.3 % (10.0-50.0); Mean Corpuscular Hemoglobin 32.6 pg (28.0-32.0); Mean Corpuscular Hgb Conc. 33.3 g/dL (32.0-36.0); Monocytes # (auto) 0.8 10 ^3/uL (0-1.3); Monocytes % (auto) 7.7 % (0.0-12.0); Neutrophils # (auto) 8.7 10 ^3/uL (1.6-8.6); Neutrophils % (auto) 83.3 % (37.0-80.0); Platelet Count (auto) 131 10^3/uL (140-450); Red Blood Cells 2.88 10^6/uL (4.5-5.90); Red Cell Distribution Width 15.2 % (11.8-14.3); White Blood Cell 10.5 10^3/uL (4.4-10.8)
--- NOTE | 2020-08-04 08:28 | NUR ---
Report Received report from HOME SALES SERVICE PROFESSIONAL.
--- NOTE | 2020-08-04 09:00 | NUR ---
Patient Arrived Patient arrived to unit. No signs of distress at this time. Respirations even and unlabored. Safety precautions in place, bed alarm on. Will continue to monitor q1hr and PRN.
--- NOTE | 2020-08-04 10:49 | NUR ---
MD Called Spoke with Dr. Bolivar regarding patient status and plan of care, per Dr. Bolivar keep patient NPO-plan for EGD today. Per Dr. Bolivar, will return to unit to speak with patient regarding plan of care.
--- NOTE | 2020-08-04 11:15 | NUR ---
KEENAN KEENAN swab obtained and signed in to lab. Patient tolerated well. No signs of distress at this time. Will continue to monitor q1hr and PRN.
--- NOTE | 2020-08-04 11:30 | NUR ---
at Bedside Dr. Bolivar at bedside discussing plan of care with patient. Dr. Bolivar spoke with patient's and daughter over the phone regarding patient EGD and status. Consents obtained over the phone with JESSICA De Leon, due to patient unable to sign consents at this time.
[2020-08-04 12:52] VITALS: BP 101/50
--- NOTE | 2020-08-04 14:16 | NUR ---
Report Received report from Katheryn.
[2020-08-04 14:25] LABS: Basophils # (auto) 0 10 ^3/uL (0-0.2); Basophils % (auto) 0.2 % (0.0-2.0); Eosinophils # (auto) 0.2 10 ^3/uL (0-0.8); Eosinophils % (auto) 1.5 % (0.0-7.0); Hematocrit 28.4 % (41.0-53.0); Hemoglobin 9.3 g/dL (13.5-17.5); Lymphocytes # (auto) 0.6 10 ^3/uL (0.4-5.4); Lymphocytes % (auto) 5.9 % (10.0-50.0); Mean Corpuscular Hemoglobin 32.3 pg (28.0-32.0); Mean Corpuscular Hgb Conc. 32.8 g/dL (32.0-36.0); Mean Corpuscular Volume 98.3 fL (80.0-100.0); Monocytes # (auto) 0.7 10 ^3/uL (0-1.3); Monocytes % (auto) 6.8 % (0.0-12.0); Neutrophils # (auto) 9.4 10 ^3/uL (1.6-8.6); Neutrophils % (auto) 85.6 % (37.0-80.0); Nucleated Red Blood Cells % 0.1 %; Platelet Count (auto) 136 10^3/uL (140-450); Red Blood Cells 2.89 10^6/uL (4.5-5.90); Red Cell Distribution Width 15.4 % (11.8-14.3)
--- NOTE | 2020-08-04 14:27 | NUR ---
Returned to Unit Patient returned to unit. Currently resting with eyes closed, respirations even and unlabored. Safety precautions in place, call light within reach, bed alarm on. Will continue to monitor q1hr and PRN.
[2020-08-04 16:52] VITALS: BP 152/87
--- NOTE | 2020-08-04 17:40 | NUR ---
Patient Rounds Patient currently resting with eyes closed. Respirations even and unlabored. No signs of distress at this time. Will continue to monitor. Safety precautions in place.
[2020-08-04] MEDS: SUCRALFATE 1 GM/10 ML ORAL SUSP PO SCH ×2 (17:48→21:56)
[2020-08-04 18:24] LABS: Basophils # (auto) 0 10 ^3/uL (0-0.2); Basophils % (auto) 0.5 % (0.0-2.0); Eosinophils # (auto) 0.1 10 ^3/uL (0-0.8); Eosinophils % (auto) 1.9 % (0.0-7.0); Hematocrit 26.7 % (41.0-53.0); Hemoglobin 8.7 g/dL (13.5-17.5); Lymphocytes # (auto) 0.6 10 ^3/uL (0.4-5.4); Mean Corpuscular Hemoglobin 32.2 pg (28.0-32.0); Mean Corpuscular Hgb Conc. 32.6 g/dL (32.0-36.0); Mean Corpuscular Volume 98.9 fL (80.0-100.0); Monocytes # (auto) 0.7 10 ^3/uL (0-1.3); Monocytes % (auto) 8.2 % (0.0-12.0); Neutrophils # (auto) 6.5 10 ^3/uL (1.6-8.6); Neutrophils % (auto) 81.4 % (37.0-80.0); Platelet Count (auto) 117 10^3/uL (140-450); Red Blood Cells 2.71 10^6/uL (4.5-5.90); Red Cell Distribution Width 15.4 % (11.8-14.3)
--- NOTE | 2020-08-04 19:35 | NUR ---
Opening Shift Note Assumed care of patient, awake and alert. Pt is visually and auditorily impaired. Pt unable to answer questions. Pt states "OK" when spoken to. No S/S of distress/SOB or pain. Pt receiving 1L of O2 via nasal cannula, saturating at 97%. Safety measures in place, bed in lowest locked position, bed rails raised x2, call light within reach. Instructed on POC and to call for assist PRN, will continue to monitor for changes Q1hr and PRN.
[2020-08-04] MEDS: PANTOPRAZOLE 40 MG TAB PO SCH (21:57)
[2020-08-04 22:26] VITALS: BP 142/75
[2020-08-05] MEDS: ACCU-CHEK COMFORT CURVE STRIP VI SCH ×4 (00:03→17:57)
[2020-08-05 05:45] VITALS: BP 118/64
[2020-08-05] MEDS: InsuLIN REG 1unit/0.01ml Soln (100units/ml) SC SCH ×4 (06:15→17:57)
[2020-08-05] MEDS: SUCRALFATE 1 GM/10 ML ORAL SUSP PO SCH ×4 (06:15→21:39)
[2020-08-05 06:22] LABS: Basophils # (auto) 0 10 ^3/uL (0-0.2); Basophils % (auto) 0.3 % (0.0-2.0); Eosinophils # (auto) 0.2 10 ^3/uL (0-0.8); Eosinophils % (auto) 2.4 % (0.0-7.0); Hematocrit 28.8 % (41.0-53.0); Hemoglobin 9.4 g/dL (13.5-17.5); Lymphocytes # (auto) 0.8 10 ^3/uL (0.4-5.4); Lymphocytes % (auto) 9.7 % (10.0-50.0); Mean Corpuscular Hemoglobin 32.4 pg (28.0-32.0); Mean Corpuscular Hgb Conc. 32.8 g/dL (32.0-36.0); Mean Corpuscular Volume 98.8 fL (80.0-100.0); Monocytes # (auto) 0.6 10 ^3/uL (0-1.3); Monocytes % (auto) 6.4 % (0.0-12.0); Neutrophils % (auto) 81.2 % (37.0-80.0); Platelet Count (auto) 114 10^3/uL (140-450); Red Blood Cells 2.91 10^6/uL (4.5-5.90); Red Cell Distribution Width 15.6 % (11.8-14.3); White Blood Cell 8.6 10^3/uL (4.4-10.8)
[2020-08-05 06:45] LABS: Calcium 8.5 mg/dL (8.5-10.1); Potassium 4.1 mmol/L (3.5-5.1)
[2020-08-05 06:47] LABS: BUN/Creatinine Ratio 5.4
--- NOTE | 2020-08-05 06:50 | NUR ---
Critical creatinine of 11.8 received. notified, no new orders at this time. Will continue to monitor.
--- NOTE | 2020-08-05 07:00 | NUR ---
Opening Shift Note Assumed patient care from Trish MOSER RN.
--- NOTE | 2020-08-05 07:23 | NUR ---
HD Nephro Left message for Dr. Brooks regarding patient lab values per Dr. Posadas communication order.
[2020-08-05 09:08] VITALS: BP 118/52
[2020-08-05] MEDS: PANTOPRAZOLE 40 MG TAB PO SCH ×2 (09:32→21:39)
--- NOTE | 2020-08-05 11:02 | NUR ---
WOUND CARE NOTE: Wound care in to see patient per wound care request regarding Rt leg skin issue that are noted on admission. Bedside nurse took photograph of patient's skin issue upon admission for reference. Patient is 60 years old male admitted due to coffee ground emesis. Patient is resting in bed in Rm. 297A. Patient is awake, alert and oriented, however he's very hard of hearing. Patient is in no stated pain at this time and he appears to be in no pain using Mann Cal[place] Faces Pain Scale. He can assist in turning and repositioning and his Nikita score is 16. No open wound noted other than dry peeling hyperpigmented skin to patient's Rt bustillos. Patient is receiving BID/PRN cleaning and application of Hydraguard cream to Rt lower extremity per MD order. RECOMMENDATION: Nursing to continue with BID/PRN cleaning and application of Hydraguard cream to RLE per MD order,frequent turning and repositioning schedule as condition permits, redistribute pressure points with pillows, continue monitoring by wound care while patient is hospitalized. Addendum: 08/05/20 at 1433 by Pascale Spann RN Amended: Links added.
--- NOTE | 2020-08-05 11:32 | NUR ---
D/C Planning Per social service consult for home health safety evaluation. Faxed clinical information to [facility] and [facility]. Per Gely with [facility] [phone] patient has been accepted and service to start within 24-48hrs upon d/c day. Obtain authorization from [facility] [id number].
--- NOTE | 2020-08-05 11:41 | NUR ---
MD Called Received call from Dr. Solitario. Per , patient to receive dialysis today.
--- NOTE | 2020-08-05 13:06 | NUR ---
HD HD RN, Marialuisa, at bedside.
[2020-08-05 13:30] VITALS: BP 117/63
[2020-08-05] MEDS ORDERED: MIDAZOLAM HCL 5 MG/ML-1ML VIAL ONE (14:04)
[2020-08-05] MEDS ORDERED: LIDOCAINE VISCOUS 2% 15ML UD ONE (14:04)
[2020-08-05] MEDS ORDERED: fentaNYL CITRATE 100 MCG/2 ML VL ONE (14:05)
[2020-08-05] MEDS ORDERED: SODIUM CHL 0.9% 1000 ML BAG XX ONE (14:30)
[2020-08-05] MEDS ORDERED: PANT40T PO (15:47)
[2020-08-05] MEDS ORDERED: SUCR1SUS10 PO (15:47)
--- NOTE | 2020-08-05 16:02 | NUR ---
EKG Obtained EKG and placed in chart. Patient currently receiving dialysis, no signs of distress at this time.
--- NOTE | 2020-08-05 16:05 | NUR ---
Left message with Dr. Posadas.
--- NOTE | 2020-08-05 16:40 | NUR ---
HD HD complete. Per patient financial specialist, 2.2L removed. Patient currently sitting up in bed, no signs of distress at this time. Respirations even and unlabored. BP 121/45, HR 63. Safety precautions in place, will continue to monitor 1hr and PRN.
--- NOTE | 2020-08-05 17:40 | NUR ---
MD CALLED Spoke with Dr. Posadas. MD aware of episode of bradycardia and 12 lead EKG. Per Md, patient may proceed with discharge due to patient being asymptomatic during episode. Will carry out orders.
[2020-08-05 18:22] VITALS: BP 132/51
--- NOTE | 2020-08-05 18:48 | NUR ---
NOTIFIED FAMILY NOTIFIED FAMILY OF PATIENT DISCHARGE STATUS. 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
--- NOTE | 2020-08-05 18:57 | NUR ---
Closing Note Endorsed care to NOC RN. RN to remove pressure dressing from fistula prior to discharge.
--- NOTE | 2020-08-05 19:20 | NUR ---
Opening Shift Note Assumed care of patient, awake and alert. No S/S of distress/SOB or pain. Pt blind and deaf. VSS. 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 Safety measures in place, bed in lowest locked position, bed rails raised x2, call light within reach. All needs addressed at this time. Instructed on POC and to call for assist PRN, will continue to monitor for changes Q1hr and PRN.
[2020-08-05 22:00] VITALS: BP 152/79
--- NOTE | 2020-08-05 22:58 | NUR ---
IVs discontinued, catheter intact, pressure dressing applied, pt tolerated well. Tele box removed and sent to monitor techs. Pt assisted to dress in own clothes, placed in wheelchair and escorted out of facility to daughter Ahi. Discharge instructions discussed with daughter. All questions addressed at this time. Pt stable, no S/S of distress, SOB or pain. Discharge complete.
== END 2020-08-05 22:58 | disposition home health service (06) | DRG 241 ==
LOC: EDBD 23:18 → ER 23:20 → TELE 23:21 → TELE-WESTW 08-04 08:54
PROVIDERS: ADMIT Hospitalist; ATTEND Hospitalist
PROC: 0DB68ZX Excision of Stomach, Via Natural or Artificial Opening Endoscopic, Diagnostic (ICD-10-PCS; principal; 2020-08-04 13:40)
PROC: 5A1D70Z Performance of Urinary Filtration, Intermittent, Less than 6 Hours Per Day (ICD-10-PCS; 2020-08-05)
DX: K29.70 Gastritis, unspecified, without bleeding (principal); N18.6 End stage renal disease; E11.65 Type 2 diabetes mellitus with hyperglycemia; R18.8 Other ascites; N25.81 Secondary hyperparathyroidism of renal origin; I12.0 Hypertensive chronic kidney disease with stage 5 chronic kidney disease or end stage renal disease; E11.22 Type 2 diabetes mellitus with diabetic chronic kidney disease; Z20.828 Contact with and (suspected) exposure to other viral communicable diseases; E78.5 Hyperlipidemia, unspecified; K21.01 Gastro-esophageal reflux disease with esophagitis, with bleeding; D63.1 Anemia in chronic kidney disease; E78.00 Pure hypercholesterolemia, unspecified; Z99.2 Dependence on renal dialysis; Z89.519 Acquired absence of unspecified leg below knee; Z79.899 Other long term (current) drug therapy
CPT/HCPCS: 36415; 43239; 74176; 80048; 80053; 82150; 82962; 83605; 83690; 83735; 83880; 84484; 85025; 85610; 85730; 86850; 86900; 86901; 87040; 87426; 90935; 93005; C9113; G0378; J1815; J2250; J2405

== ENCOUNTER 2020-11-05 19:01 | Inpatient (IN) | payer MEDICAID ==
[~2020-11-05] VITALS: Ht 185.4 cm; Wt 81.4 kg
[~2020-11-05 19:01] MED LIST changes: -CALC667C5 PO; -CLIN300C8 PO; -HYDR-4296; -NIFE-16; -PROC10TA2 PO; +SUCR1SUS10 PO
[2020-11-05] MEDS ORDERED: LORazepam 2MG/ML-1ML VIAL IV ONE (20:30)
[2020-11-05 23:46] LABS: Basophils # (auto) 0 10 ^3/uL (0-0.2); Basophils % (auto) 0.4 % (0.0-2.0); Eosinophils # (auto) 0.1 10 ^3/uL (0-0.8); Eosinophils % (auto) 1.9 % (0.0-7.0); Hemoglobin 10.9 g/dL (13.5-17.5); Lymphocytes # (auto) 0.4 10 ^3/uL (0.4-5.4); Lymphocytes % (auto) 5.3 % (10.0-50.0); Mean Corpuscular Hemoglobin 30.1 pg (28.0-32.0); Mean Corpuscular Volume 91.3 fL (80.0-100.0); Monocytes # (auto) 0.5 10 ^3/uL (0-1.3); Monocytes % (auto) 7.1 % (0.0-12.0); Neutrophils # (auto) 6.2 10 ^3/uL (1.6-8.6); Neutrophils % (auto) 85.3 % (37.0-80.0); Platelet Count (auto) 133 10^3/uL (140-450); Red Blood Cells 3.62 10^6/uL (4.5-5.90); Red Cell Distribution Width 15.3 % (11.8-14.3); White Blood Cell 7.2 10^3/uL (4.4-10.8)
[2020-11-06 00:07] LABS: Albumin 3.4 g/dL (3.4-5.0); Calcium 8.4 mg/dL (8.5-10.1); Magnesium 2.1 mg/dL (1.6-2.6); Potassium 3.8 mmol/L (3.5-5.1)
[2020-11-06 00:11] LABS: Bilirubin, Total 0.6 mg/dL (0.2-1.0); Total Protein 7.8 g/dL (6.4-8.2)
[2020-11-06 00:16] LABS: INR 1.07 (0.9-1.15); Partial Thromboplastin Time 27.3 sec (23.0-31.2)
[2020-11-06 00:17] LABS: BUN/Creatinine Ratio 5.5
[2020-11-06] MEDS ORDERED: InsuLIN REG 1unit/0.01ml Soln (100units/ml) IV ONE (01:00)
[2020-11-06] MEDS ORDERED: ENOXAPARIN SOD 80 MG/0.8ML SYRINGE SC ONE (01:15)
[2020-11-06] MEDS ORDERED: NITROGLYCERIN 0.4 MG SL TAB SL PRN (07:00)
[2020-11-06] MEDS ORDERED: DEXTROSE (50%) 50ML SYRG IV PRN ×6 (07:00→12:30)
[2020-11-06] MEDS ORDERED: ATORVASTATIN 20 MG TAB PO ONE (07:00)
[2020-11-06] MEDS ORDERED: MORPHINE SULF INJ 2 MG/ML SYRINGE 1ML IV PRN (07:00)
[2020-11-06] MEDS ORDERED: ASPirin 81 mg TAB PO ONE (07:00)
[2020-11-06] MEDS ORDERED: cefTRIAXone 1GM/50ML D5W 50 ML IV ONE (07:00)
[2020-11-06] MEDS ORDERED: PIPERACILLIN-TAZOB 0.75 GM in D5W 5% 50 ML IV SCH (07:45)
[2020-11-06 07:58] LABS: Cholesterol 110 mg/dL (< 200); HDL Cholesterol 52 mg/dL (40-59); LDL Cholesterol 48 mg/dL (< 100); Triglycerides 102 mg/dL (< 150)
[2020-11-06] MEDS ORDERED: DOXYCYCLINE 100MG/250ML 250 ML IV SCH (10:00)
[2020-11-06] MEDS: SUCRALFATE 1 GM/10 ML ORAL SUSP PO SCH ×3 (11:29→21:43)
[2020-11-06] MEDS ORDERED: InsuLIN REG 1unit/0.01ml Soln (100units/ml) SC SCH ×10 (12:00→22:00)
[2020-11-06] MEDS ORDERED: ACCU-CHEK COMFORT CURVE STRIP VI SCH ×6 (12:00→17:00)
[2020-11-06] MEDS ORDERED: INSULIN LANTUS (GLARGINE) 1 /0.01ml (100units/ml) SC SCH ×6 (12:30→22:00)
[2020-11-06] MEDS ORDERED: INSULIN LANTUS (GLARGINE) 1 /0.01ml (100units/ml) SC ONE ×5 (12:30)
[2020-11-06] MEDS: SEVELAMER 800 MG TAB PO SCH ×2 (12:34→18:39)
[2020-11-06] MEDS: PIPERACILLIN-TAZOB 2.25GM 50 ML IV SCH ×2 (13:29→21:43)
[2020-11-06] MEDS ORDERED: HEPARIN SODIUM (PORCINE) 5000 UNITS/ML 1ML VIAL SC SCH (14:00)
[2020-11-06] MEDS: ACCU-CHEK COMFORT CURVE STRIP VI SCH ×2 (17:13→21:45)
[2020-11-06] MEDS: InsuLIN REG 1unit/0.01ml Soln (100units/ml) SC SCH (17:15)
[2020-11-06 21:00] VITALS: BP 161/57
[2020-11-06] MEDS: PANTOPRAZOLE 40 MG TAB PO SCH (21:43)
[2020-11-06] MEDS: HEPARIN SODIUM (PORCINE) 5000 UNITS/ML 1ML VIAL SC SCH (21:44)
[2020-11-06] MEDS: INSULIN LANTUS (GLARGINE) 1 /0.01ml (100units/ml) SC SCH (21:45)
[2020-11-06 22:00] VITALS: BP 130/52
[2020-11-07 05:00] VITALS: BP 131/64
[2020-11-07 06:01] LABS: Basophils # (auto) 0 10 ^3/uL (0-0.2); Basophils % (auto) 0.7 % (0.0-2.0); Eosinophils # (auto) 0.2 10 ^3/uL (0-0.8); Eosinophils % (auto) 3.2 % (0.0-7.0); Hematocrit 32.1 % (41.0-53.0); Hemoglobin 10.7 g/dL (13.5-17.5); Lymphocytes # (auto) 0.6 10 ^3/uL (0.4-5.4); Mean Corpuscular Hemoglobin 30.2 pg (28.0-32.0); Mean Corpuscular Hgb Conc. 33.2 g/dL (32.0-36.0); Mean Corpuscular Volume 91.1 fL (80.0-100.0); Monocytes # (auto) 0.5 10 ^3/uL (0-1.3); Neutrophils # (auto) 4.8 10 ^3/uL (1.6-8.6); Neutrophils % (auto) 78.1 % (37.0-80.0); Platelet Count (auto) 144 10^3/uL (140-450); Red Blood Cells 3.53 10^6/uL (4.5-5.90); Red Cell Distribution Width 15.5 % (11.8-14.3); White Blood Cell 6.1 10^3/uL (4.4-10.8)
[2020-11-07 06:44] LABS: Calcium 8.4 mg/dL (8.5-10.1); Potassium 3.6 mmol/L (3.5-5.1)
[2020-11-07] MEDS: INSULIN LANTUS (GLARGINE) 1 /0.01ml (100units/ml) SC SCH (06:45)
[2020-11-07] MEDS: SUCRALFATE 1 GM/10 ML ORAL SUSP PO SCH ×2 (06:45→11:25)
[2020-11-07] MEDS: ACCU-CHEK COMFORT CURVE STRIP VI SCH ×2 (06:45→11:25)
[2020-11-07] MEDS: InsuLIN REG 1unit/0.01ml Soln (100units/ml) SC SCH ×2 (06:46→11:25)
[2020-11-07 06:52] LABS: BUN/Creatinine Ratio 6.4
[2020-11-07 08:00] VITALS: BP 132/42
[2020-11-07] MEDS: SEVELAMER 800 MG TAB PO SCH ×2 (08:00→12:04)
[2020-11-07] MEDS ORDERED: SODIUM CHL 0.9% 1000 ML BAG XX ONE (09:15)
[2020-11-07] MEDS: PANTOPRAZOLE 40 MG TAB PO SCH (09:49)
[2020-11-07] MEDS: HEPARIN SODIUM (PORCINE) 5000 UNITS/ML 1ML VIAL SC SCH (09:50)
[2020-11-07] MEDS ORDERED: CINACALCET HYDROCHLORIDE 30 MG TAB PO SCH (10:00)
[2020-11-07] MEDS: PIPERACILLIN-TAZOB 2.25GM 50 ML IV SCH (12:04)
[2020-11-07] MEDS ORDERED: INSLANTI SC (12:41)
[2020-11-07] MEDS ORDERED: INSREGI SC (12:41)
[2020-11-07 16:00] VITALS: BP 106/86
== END 2020-11-07 16:45 | disposition home health service (06) | DRG 420 ==
LOC: ER 19:01 → EDBD 19:01 → TELE 19:02 → TELE-CENTR 11-06 20:52
PROVIDERS: ADMIT Hospitalist; ATTEND Hospitalist
PROC: 5A1D70Z Performance of Urinary Filtration, Intermittent, Less than 6 Hours Per Day (ICD-10-PCS; principal; 2020-11-07)
DX: E11.65 Type 2 diabetes mellitus with hyperglycemia (principal); I13.2 Hypertensive heart and chronic kidney disease with heart failure and with stage 5 chronic kidney disease, or end stage renal disease; I50.21 Acute systolic (congestive) heart failure; G93.41 Metabolic encephalopathy; N18.6 End stage renal disease; L03.115 Cellulitis of right lower limb; E11.22 Type 2 diabetes mellitus with diabetic chronic kidney disease; E11.51 Type 2 diabetes mellitus with diabetic peripheral angiopathy without gangrene; D63.8 Anemia in other chronic diseases classified elsewhere; H54.7 Unspecified visual loss; Z20.822 Contact with and (suspected) exposure to COVID-19; Y92.89 Other specified places as the place of occurrence of the external cause; Z82.49 Family history of ischemic heart disease and other diseases of the circulatory system; Z79.4 Long term (current) use of insulin; Z83.3 Family history of diabetes mellitus; Z89.512 Acquired absence of left leg below knee; Z99.2 Dependence on renal dialysis
CPT/HCPCS: 36415; 36600; 70450; 80048; 80053; 80061; 80329; 82010; 82805; 82962; 83036; 83605; 83735; 83880; 84484; 85025; 85379; 85610; 85730; 87040; 87077; 87186; 87205; 87426; 90935; 93005; 93306; 93971; 96365; 96366; 96367; 96372; 96375; G0378; J0696; J1815; J2543; J3490

== ENCOUNTER 2020-11-15 19:49 | Emergency (ER) | payer MEDICAID ==
[~2020-11-15] VITALS: Ht 167.6 cm; Wt 86.2 kg
[~2020-11-15 19:49] MED LIST changes: -GLIP5TAB12; +INSLANTI SC; +INSREGI SC
[2020-11-15] MEDS ORDERED: EPINEPHrine HCL 1 MG/10 ML SYRG IV ONE (19:54)
[2020-11-15] MEDS ORDERED: SODIUM BICARBONATE 8.4% INJ 50ML SYRINGE IV ONE (19:54)
[2020-11-15] MEDS ORDERED: CALCIUM CHLOR(10%) 100MG/ML 10ML SYRINGE IV ONE (19:54)
[2020-11-15] MEDS ORDERED: ACCU-CHEK COMFORT CURVE STRIP VI ONE (20:15)
[2020-11-15 22:20] LABS: Basophils # (auto) 0 10 ^3/uL (0-0.2); Basophils % (auto) 0.2 % (0.0-2.0); Eosinophils # (auto) 0.1 10 ^3/uL (0-0.8); Eosinophils % (auto) 1.1 % (0.0-7.0); Hematocrit 30.6 % (41.0-53.0); Hemoglobin 9.5 g/dL (13.5-17.5); Lymphocytes # (auto) 0.3 10 ^3/uL (0.4-5.4); Lymphocytes % (auto) 3.1 % (10.0-50.0); Mean Corpuscular Hemoglobin 29.7 pg (28.0-32.0); Mean Corpuscular Volume 95.6 fL (80.0-100.0); Monocytes # (auto) 0.4 10 ^3/uL (0-1.3); Monocytes % (auto) 3.4 % (0.0-12.0); Neutrophils # (auto) 9.4 10 ^3/uL (1.6-8.6); Neutrophils % (auto) 92.2 % (37.0-80.0); Nucleated Red Blood Cells % 0.2 %; Platelet Count (auto) 140 10^3/uL (140-450); Red Cell Distribution Width 15.9 % (11.8-14.3); White Blood Cell 10.2 10^3/uL (4.4-10.8)
[2020-11-15 22:42] LABS: Albumin 3.2 g/dL (3.4-5.0); Anion Gap 11 (5-15); Blood Alcohol < 3.0 mg/dL (0-5); Blood Urea Nitrogen 36 mg/dL (7-18); Calcium 8.1 mg/dL (8.5-10.1); Carbon Dioxide 25 mmol/L (21-32); Chloride 88 mmol/L (98-107); Potassium 4.3 mmol/L (3.5-5.1); Sodium 124 mmol/L (136-145)
[2020-11-15 22:50] LABS: Alanine Aminotransferase 34 U/L (16-61); Alkaline Phosphatase 170 U/L (45-117); Aspartate Aminotransferase 17 U/L (15-37); BUN/Creatinine Ratio 5.4; Bilirubin, Total 0.5 mg/dL (0.2-1.0); GFR African American 11 mL/min; GFR Non-African American 9 mL/min; Total Protein 7.6 g/dL (6.4-8.2)
[2020-11-15 23:22] LABS: Glucose 771 mg/dL (74-106)
[2020-11-16] MEDS ORDERED: InsuLIN REG 1unit/0.01ml Soln (100units/ml) IV ONE (00:15)
[2020-11-16 09:38] LABS: INR 1.12 (0.9-1.15); Partial Thromboplastin Time 26.2 sec (23.0-31.2)
[2020-11-16] MEDS ORDERED: LORazepam 2MG/ML-1ML VIAL IV ONE (10:45)
[2020-11-16] MEDS ORDERED: MIDAZOLAM DRIP 50 mg/50mL 50 ML IV ONE (11:15)
[2020-11-16 11:30] VITALS: BP 65/17
[2020-11-16] MEDS ORDERED: MIDAZOLAM DRIP 50 mg/50mL 50 ML IV SCH (11:30)
[2020-11-16] MEDS ORDERED: fentaNYL Drip 2500mCg/250mlNS 250 ML IV SCH (11:30)
[2020-11-16] MEDS ORDERED: EPINEPHrine HCL 1 MG/10 ML SYRG ONE ×3 (11:37→12:46)
[2020-11-16] MEDS ORDERED: SODIUM BICARBONATE 8.4% INJ 50ML SYRINGE ONE (11:39)
[2020-11-16] MEDS ORDERED: EPINEPHrine HCL 250 ML IV ONE (12:19)
[2020-11-16] MEDS ORDERED: EPINEPHrine HCL 250 ML IV SCH (12:30)
== END 2020-11-16 13:59 ==
LOC: EDUNIT# 19:49 → EDBD 19:49 → ER 19:53
DX: R41.82 Altered mental status, unspecified (principal); E11.65 Type 2 diabetes mellitus with hyperglycemia; E11.22 Type 2 diabetes mellitus with diabetic chronic kidney disease; I13.2 Hypertensive heart and chronic kidney disease with heart failure and with stage 5 chronic kidney disease, or end stage renal disease; I50.9 Heart failure, unspecified; N18.6 End stage renal disease; E87.1 Hypo-osmolality and hyponatremia; K21.9 Gastro-esophageal reflux disease without esophagitis; E78.5 Hyperlipidemia, unspecified; Z20.822 Contact with and (suspected) exposure to COVID-19
CPT/HCPCS: 31500; 36415; 36556; 70450; 71045; 71250; 74176; 80053; 80320; 82010; 82962; 83605; 83880; 84484; 85025; 85610; 85730; 87040; 87070; 87205; 87426; 92950; 93005; 96374; 96375; 99285; C9803; J0171; J1815; J2060; J2250; J7030; U0003